=== PATIENT | male | born 1975 | race Caucasian/White ===

== ENCOUNTER 2017-09-07 16:57 | Emergency (ER) | payer OTHER ==
[2017-09-07 17:30] VITALS: BP 135/85
--- NOTE | 2017-09-07 17:52 | UC ---
Skin Complaint HPI - HPI Summary HPI Summary: PATIENT REMOVED A TICK FROM HIS LEFT UPPER BACK LAST NIGHT. PATIENT STATES THE TICK WAS ATTACHED FOR LESS THAN 1 HOUR. REMOVED THE TICK WITH TWEEZERS. DENIES ANY PAIN BUT STATES SHE WANTED TO HAVE THE BITE LOOKED AT. - History of Current Complaint Chief Complaint: UCUpperExtremity Time Seen by Provider: 09/07/17 17:31 Stated Complaint: TICK BITE Hx Obtained From: Patient Onset/Duration: Sudden Onset Skin Exposure Onset/Duration: Hours Ago Onset Severity: Mild Current Severity: None Pain Intensity: 0 Pain Scale Used: 0-10 Numeric Location: Discrete - Left upper back Character: Redness Aggravating Factor(s): Nothing Alleviating Factor(s): Nothing Associated Signs & Symptoms: Negative: Nausea, Fever, Chills, Rash, Tenderness - Allergy/Home Medications Allergies/Adverse Reactions: Allergies Allergy/AdvReac Type Severity Reaction Status Date / Time No Known Allergies Allergy Verified 09/07/17 17:24 Home Medications: Home Medications NK [No Home Medications Reported] 09/07/17 [History Confirmed 09/07/17] Review of Systems Constitutional: Negative Skin: Other - Tick bite site left upper back Respiratory: Negative Cardiovascular: Negative Gastrointestinal: Negative Musculoskeletal: Negative Neurological: Negative All Other Systems Reviewed And Are Negative: Yes PMH/Surg Hx/FS Hx/Imm Hx Previously Healthy: Yes - Surgical History Surgical History: Yes Surgery Procedure, Year, and Place: HERNIA REPAIR x 3 - Family History Known Family History: Positive: Cardiac Disease, Hypertension - Social History Alcohol Use: Daily Alcohol Amount: 3 beers/ daily Substance Use Type: None Smoking Status (MU): Light Every Day Tobacco Smoker Amount Used/How Often: 1/2 PPD - Immunization History Most Recent Tetanus Shot: 02/12/2012 Physical Exam Triage Information Reviewed: Yes Appearance: Well-Appearing, No Pain Distress, Well-Nourished Vital Signs: Initial Vital Signs Temp 99 F 09/07/17 17:25 Pulse 64 09/07/17 17:25 Resp 16 09/07/17 17:25 BP 135/85 09/07/17 17:25 Pulse Ox 100 09/07/17 17:25 Vital Signs Reviewed: Yes Eyes: Positive: Conjunctiva Clear ENT: Positive: Hearing grossly normal Neck: Positive: Supple Respiratory: Positive: No respiratory distress, No accessory muscle use Cardiovascular: Positive: Pulses Normal Abdomen Description: Positive: Soft Musculoskeletal: Positive: No Edema Neurological: Positive: Alert Psychological: Positive: Age Appropriate Behavior Skin: Positive: Other - <1CM AREA OF ERYTHEMA SURROUNDING TICK BITE SITE LEFT UPPER BACK. NOT TENDER. Course/Dx - Diagnoses Provider Diagnoses: TICK BITE Discharge - Sign-Out/Discharge Documenting (check all that apply): Discharge/Admit/Transfer - Discharge Plan Condition: Stable Disposition: HOME Patient Education Materials: Tick Bite (ED) Referrals: No Primary Care Phys,NOPCP [Primary Care Provider] - Additional Instructions: The Infectious Disease Society of [place] (IDSA) does not generally recommend antimicrobial prophylaxis for prevention of Lyme disease after a recognized tick bite. However, in areas that are highly endemic for Lyme disease, a single dose of doxycycline may be offered to adult patients (200 mg) who are not and to children older than 8 years of age (4 mg/kg up to a maximum dose of 200 mg) when all of the following circumstances exist: CRITERIA FOR RECEIVING PROPHYLACTIC TREATMENT FOR LYME DISEASE 1) TICK ATTACHED FOR AT LEAST 36 HRS 2) TICK IS AN ADULT OR [place] DEER TICK 3) YOU LIVE IN AN AREA WHERE LYME DISEASE IS PREVALENT (i.e., [place], [place], [place], [place], [place] , [place], [place], [place], [place], [place], [place], [place], [place], [place]) 4) YOU HAVE NO CONTRAINDICATION TO THE MEDICATION (DOXYCYCLINE) 5) PROPHYLAXIS IS BEGUN WITHIN 72 HRS OF TICK REMOVAL SINCE YOU DO NOT MEET ALL THESE CRITERIA THERE IS NO NEED TO GIVE YOU PROPHYLACTIC ANTIBIOTICS. YOUR CHANCES OF DEVELOPING LYME DISEASE ARE EXTREMELY SMALL. BE VIGILANT OF YOUR SYMPTOMS AND DON'T HESITATE TO GET SEEN AGAIN IF YOU DEVELOP UNEXPLAINED FEVER, HEADACHE, JOINT PAIN, BODY ACHES, RASH OR ANY OTHER CONCERNING SYMPTOMS. Antibiotic treatment following a tick bite is not recommended as a means to prevent anaplasmosis, babesiosis, ehrlichiosis, or [place] spotted fever. There is no evidence this practice is effective, and it may simply delay onset of disease. Instead, persons who experience a tick bite should be alert for symptoms suggestive of tickborne illness and consult a physician if fever, rash, or other symptoms of concern develop. CALL THE NUMBER BELOW FOR ASSISTANCE IN ESTABLISHING WITH A PCP An additional resource available to assist in finding the appropriate physician for your health care needs is the [facility] ([facility]). You may contact them by calling [phone]. - Billing Disposition and Condition Condition: STABLE Disposition: HOME
== END 2017-09-07 18:00 | disposition home or self-care (01) ==
LOC: UCEAST 16:57
DX: S20.462A Insect bite (nonvenomous) of left back wall of thorax, initial encounter (principal); W57.XXXA Bitten or stung by nonvenomous insect and other nonvenomous arthropods, initial encounter; Y93.9 Activity, unspecified; Y92.9 Unspecified place or not applicable; F17.210 Nicotine dependence, cigarettes, uncomplicated
CPT/HCPCS: 99201; G0463

== ENCOUNTER 2019-03-04 14:01 | Emergency (ER) | payer OTHER ==
[2019-03-04 14:26] VITALS: BP 128/84
--- NOTE | 2019-03-04 15:27 | UC ---
Ear Complaint HPI - HPI Summary HPI Summary: 43 yo male presents with right ear muffled and drainage. He tells me that he has a history of "swimmer's ear". Over the last 3 days has been having right ear muffling and clear/yellow watery drainage. Mild pain. Denies fever, chills, sinus symptoms, sore throat, cough. - History of Current Complaint Chief Complaint: UCEar Stated Complaint: PLUGGED EAR Time Seen by Provider: 03/04/19 15:25 Hx Obtained From: Patient Severity Initially: Mild Severity Currently: Mild Pain Intensity: 1 Pain Scale Used: 0-10 Numeric - Allergies/Home Medications Allergies/Adverse Reactions: Allergies Allergy/AdvReac Type Severity Reaction Status Date / Time No Known Allergies Allergy Verified 03/04/19 14:26 Home Medications: Home Medications [place]-3 Fatty Acids/Fish Oil [Fish Oil 1,000 mg Softgel] 1 tab PO DAILY [History Confirmed 03/04/19] PMH/Surg Hx/FS Hx/Imm Hx - Additional Past Medical History Additional PMH: None - Surgical History Surgical History: Yes Surgery Procedure, Year, and Place: HERNIA REPAIR x 3 - Family History Known Family History: Positive: Cardiac Disease, Hypertension - Social History Lives: With Family Alcohol Use: Daily Alcohol Amount: 3 beers/ daily Substance Use Type: None Smoking Status (MU): Light Every Day Tobacco Smoker Amount Used/How Often: 1 PPD Household Exposure Type: Cigarettes - Immunization History Most Recent Tetanus Shot: 02/12/2012 Review of Systems All Other Systems Reviewed And Are Negative: No Constitutional: Positive: Negative Skin: Positive: Negative Eyes: Positive: Negative ENT: Positive: Ear Ache Respiratory: Positive: Negative Cardiovascular: Positive: Negative Neurological: Positive: Negative Psychological: Positive: Negative Physical Exam - Summary Physical Exam Summary: GENERAL: NAD. WDWN. No pain distress. SKIN: No rashes, sores, lesions, or open wounds. HEENT: Head: AT/NC Eyes: EOM intact. Conjunctiva clear without inflammation or discharge. Ears: Hearing grossly normal. RIGHT ear canal with moderate edema and white/yellow discharge. No mastoid tenderness. Nose: Nasal mucosa pink and moist. NTTP maxillary and frontal sinus. Throat: Posterior oropharynx without exudates, erythema, or tonsillar enlargement. Uvula midline. NECK: Supple. Nontender. No lymphadenopathy. CHEST: CTAB. No r/r/w. No accessory muscle use. Breathing comfortably and in no distress. CV: RRR. Without m/r/g. Pulses intact. NEURO: Alert. PSYCH: Age appropriate behavior. Triage Information Reviewed: Yes Vital Signs: Initial Vital Signs Temp 99 F 03/04/19 14:24 Pulse 80 03/04/19 14:24 Resp 18 03/04/19 14:24 BP 128/84 03/04/19 14:24 Pulse Ox 100 03/04/19 14:24 Vital Signs Reviewed: Yes Ear Complaint Course/Dx - Course Course Of Treatment: Right otitis externa - Differential Dx/Diagnosis Provider Diagnosis: Otitis externa Discharge ED - Sign-Out/Discharge Documenting (check all that apply): Patient Departure All imaging exams completed and their final reports reviewed: No Studies - Discharge Plan Condition: Stable Disposition: HOME Prescriptions: Ofloxacin 0.3% (Ear Drop)* [Floxin 0.3% OTIC.ABHISHEK (Ear Drop)] 5 drop RIGHT EAR BID 7 Days #1 btl Patient Education Materials: Otitis Externa (ED) Referrals: No Primary Care Phys,NOPCP [Primary Care Provider] - Additional Instructions: If you develop a fever, shortness of breath, chest pain, new or worsening symptoms - please call your PCP or go to the ED immediately. - Billing Disposition and Condition Condition: STABLE Disposition: Home
== END 2019-03-04 16:00 | disposition home or self-care (01) ==
LOC: UCEAST 14:01
DX: H60.91 Unspecified otitis externa, right ear (principal); F17.210 Nicotine dependence, cigarettes, uncomplicated
CPT/HCPCS: 99212; G0463

== ENCOUNTER 2019-03-05 14:26 | Emergency (ER) | payer OTHER ==
[2019-03-05 14:33] VITALS: BP 136/83
--- NOTE | 2019-03-05 15:20 | UC ---
Ear Complaint HPI - HPI Summary HPI Summary: 43-year-old male comes in with a complaint of the ear medication he put in his right ear didn't come out. Patient had some pressure in the right ear for 4 days was seen here yesterday started on ofloxacin antibiotic drops. When he put drops in the didn't come out. The amount of pressure in the ear did not increase. He doesn't describe the pressure is pain. No upper respiratory tract infection symptoms. No known trauma. - History of Current Complaint Chief Complaint: UCEar Stated Complaint: EAR CLOGGED Time Seen by Provider: 03/05/19 15:11 Pain Intensity: 0 - Allergies/Home Medications Allergies/Adverse Reactions: Allergies Allergy/AdvReac Type Severity Reaction Status Date / Time No Known Allergies Allergy Verified 03/05/19 14:33 PMH/Surg Hx/FS Hx/Imm Hx Previously Healthy: Yes - Surgical History Surgical History: Yes Surgery Procedure, Year, and Place: HERNIA REPAIR x 3 - Family History Known Family History: Positive: Cardiac Disease, Hypertension - Social History Alcohol Use: Daily Alcohol Amount: 3 beers/ daily Substance Use Type: None Smoking Status (MU): Light Every Day Tobacco Smoker Amount Used/How Often: 1 PPD Household Exposure Type: Cigarettes - Immunization History Most Recent Tetanus Shot: 02/12/2012 Review of Systems All Other Systems Reviewed And Are Negative: Yes Constitutional: Positive: Negative Skin: Positive: Negative Eyes: Positive: Negative ENT: Positive: Other - SEE HPI Respiratory: Positive: Negative Cardiovascular: Positive: Negative Gastrointestinal: Positive: Negative Motor: Positive: Negative Neurovascular: Positive: Negative Musculoskeletal: Positive: Negative Neurological: Positive: Negative Psychological: Positive: Negative Is Patient Immunocompromised?: No Physical Exam Triage Information Reviewed: Yes Appearance: Well-Appearing, No Pain Distress, Well-Nourished Vital Signs: Initial Vital Signs Temp 99.5 F 03/05/19 14:31 Pulse 82 03/05/19 14:31 Resp 18 03/05/19 14:31 BP 136/83 03/05/19 14:31 Pulse Ox 98 03/05/19 14:31 Vital Signs Reviewed: Yes Eye Exam: Normal Eyes: Positive: Conjunctiva Clear ENT: Positive: Other - Left TM and ear canal are normal. The right ear canal has yellow substance adhering to the chairez and there is a central clearing. The also is most consistent with cerumen. Nontender to palpation of the tragus. The eardrum is not seen. Neck: Positive: Supple Respiratory: Positive: No respiratory distress Musculoskeletal: Positive: Strength Intact, ROM Intact Neurological: Positive: Alert, Muscle Tone Normal Psychological: Positive: Age Appropriate Behavior Skin Exam: Normal Ear Complaint Course/Dx - Course Course Of Treatment: Examination is most consistent with a partial cerumen impaction in the right ear. I discussed irrigation with the patient which he prefers to not do at this time. The plan will be to continue taking the ear drops follow-up with ENT if not improved or worse. - Differential Dx/Diagnosis Provider Diagnosis: Right otitis externa, Excessive cerumen in right ear canal Discharge ED - Sign-Out/Discharge Documenting (check all that apply): Patient Departure All imaging exams completed and their final reports reviewed: No Studies - Discharge Plan Condition: Stable Disposition: HOME Patient Education Materials: Otitis Externa (ED), Cerumen Impaction (ED) Referrals: Will Cross MD [Medical Doctor] - Additional Instructions: FOLLOW UP WITH ENT IF NOT COMPLETELY IMPROVED. GET REEVALUATED SOONER IF NOT IMPROVED OR WORSE OR ANY QUESTIONS OR CONCERNS. - Billing Disposition and Condition Condition: STABLE Disposition: Home
== END 2019-03-05 15:26 | disposition home or self-care (01) ==
LOC: UCEAST 14:26
DX: H60.91 Unspecified otitis externa, right ear (principal); H61.21 Impacted cerumen, right ear; F17.210 Nicotine dependence, cigarettes, uncomplicated
CPT/HCPCS: 99211; G0463